=== PATIENT | female | born 1950 | race Caucasian/White ===

== ENCOUNTER 2017-06-26 19:05 | Emergency (ER) | payer OTHER ==
[2017-06-26 19:59] LABS: PLATELET COUNT 310 10^3/uL (150-400)
--- NOTE | 2017-06-26 20:21 | EDPHY ---
H & P Stated Complaint: c/o abd cramping/bloating intermittently x 1 week Time Seen by Provider: 06/26/17 19:22 HPI/ROS: CHIEF COMPLAINT: Abdominal pain HISTORY OF PRESENT ILLNESS: The patient presents to the ED with a one-week history of worsening intermittent abdominal pain. The patient reports her pain is colicky in nature. It primarily is on the left side of her abdomen. She currently complains of mild left lower quadrant tenderness. The patient has a past surgical history significant for x3. She denies any melena or hematemesis. The patient did have 1 episode of nausea and vomiting. The patient reports her symptoms are worsened with eating. She denies any focal right upper quadrant pain. She denies any radiation of her pain to the neck, back or shoulder. REVIEW OF SYSTEMS: A comprehensive 10 point review of systems is otherwise negative aside from elements mentioned in the history of present illness. Source: Patient Exam Limitations: No limitations - Medical/Surgical History Hx Asthma: No Hx Chronic Respiratory Disease: No Hx Diabetes: No Hx Cardiac Disease: No Hx Renal Disease: No Hx Cirrhosis: No Hx Alcoholism: No Hx HIV/AIDS: No Hx Splenectomy or Spleen Trauma: No Other PMH: c section x 3, removal of 1 uterus - Social History Smoking Status: Never smoked - Physical Exam Exam: General Appearance: Alert, no distress Eyes: Pupils equal and round no pallor or injection ENT, Mouth: Mucous membranes moist Respiratory: There are no retractions, lungs are clear to auscultation Cardiovascular: Regular rate and rhythm Gastrointestinal: Tenderness to palpation left lower quadrant, normal bowel sounds, no peritoneal signs Neurological: A&O, normal motor function, normal sensory exam, normal cranial nerves Skin: Warm and dry, no rashes Musculoskeletal: Neck is supple nontender Extremities: symmetrical, full range of motion Constitutional: Initial Vital Signs Temperature (C) 36.9 C 06/26/17 19:09 Heart Rate 77 06/26/17 19:09 Respiratory Rate 16 06/26/17 19:09 Blood Pressure 145/86 H 06/26/17 19:09 O2 Sat (%) 96 06/26/17 19:09 O2 Delivery Mode Room Air Allergies/Adverse Reactions: codeine [Codeine] Allergy (Mild, Verified 06/26/17 19:14) aspirin [Aspirin] Adverse Reaction (Mild, Verified 06/26/17 19:14) Home Medications: Medication Instructions Recorded Hydrocodone/APAP 5/325 [Pecon[place] 1 - 2 each PO Q6 PRN #20 tab 06/26/17 5/325] Ondansetron Odt [Zofran Odt] 4 mg PO Q4PRN PRN #20 tab 06/26/17 levOFLOXACIN [Levaquin] 500 mg PO DAILY #10 tab 06/26/17 metroNIDAZOLE [Flagyl 500 mg (RX)] 500 mg PO TID #30 tab 06/26/17 Medical Decision Making ED Course/Re-evaluation: The patient presents the emergency department complaints of worsening intermittent abdominal pain for past week. She has mild left lower quadrant tenderness noted on exam. The patient was noted to have a slight leukocytosis. A CT scan of the abdomen pelvis with IV contrast was ordered to evaluate for possible diverticulitis. CT scan of the abdomen pelvis does demonstrate diverticulitis without perforation or abscess. The patient was re-evaluated at 9:15 p.m.. She would like to be treated as an outpatient with oral antibiotics. She is given Levaquin and Flagyl in the emergency department. The patient will be advised to be on a soft mechanical diet for the next several days. She also be given a prescription for Zofran and Pe[place]ic. She does understand to return to the ED for markedly worsening pain, fever, vomiting or other concerns. The patient follow up with her primary care provider at [facility] [place] for a recheck within the week. Differential Diagnosis: Differential diagnosis considered includes diverticulitis, perforation, abscess , pancreatitis, cholecystitis - Data Points Laboratory Results: Laboratory Results 06/26/17 19:42 06/26/17 19:42 06/26/17 06/26/17 06/26/17 21:04 19:42 19:42 WBC RBC Hgb Hct MCV MCH MCHC RDW Plt Count MPV Neut % (Auto) Lymph % (Auto) [place] % (Auto) Eos % (Auto) Baso % (Auto) Nucleat RBC Rel Count Absolute Neuts (auto) Absolute Lymphs (auto) Absolute Monos (auto) Absolute Eos (auto) Absolute Basos (auto) Absolute Nucleated RBC Immature Gran % Immature Gran # Sodium 141 mEq/L mEq/L (135-145) Potassium 3.7 mEq/L mEq/L (3.5-5.2) Chloride 106 mEq/L mEq/L (97-110) Carbon Dioxide 22 mEq/l mEq/l (22-31) Anion Gap 13 mEq/L mEq/L (8-16) BUN 22 mg/dL mg/dL (7-23) Creatinine 0.7 mg/dL mg/dL (0.6-1.0) Estimated GFR > 60 Glucose 99 mg/dL mg/dL (70-100) Calcium 10.1 mg/dL mg/dL (8.5-10.4) Total Bilirubin 0.8 mg/dL mg/dL (0.1-1.4) Conjugated Bilirubin 0.3 mg/dL mg/dL (0.0-0.5) Unconjugated Bilirubin 0.5 mg/dL mg/dL (0.0-1.1) AST 25 IU/L IU/L (14-46) ALT 32 IU/L IU/L (9-52) Alkaline Phosphatase 95 IU/L IU/L (38-126) Total Protein 7.1 g/dL g/dL (6.3-8.2) Albumin 4.3 g/dL g/dL (3.5-5.0) Lipase 149 IU/L IU/L (23-300) Urine Color Pending Urine Appearance Pending Urine pH Pending Ur Specific [place] Pending Urine Protein Pending Urine Ketones Pending Urine Blood Pending Urine Nitrate Pending Urine Bilirubin Pending Urine Urobilinogen Pending Ur Leukocyte Esterase Pending Urine Glucose Pending 06/26/17 19:42 WBC 12.58 10^3/uL H 10^3/uL (3.80-9.50) RBC 4.64 10^6/uL 10^6/uL (4.18-5.33) Hgb 14.0 g/dL g/dL (12.6-16.3) Hct 40.2 % % (38.0-47.0) MCV 86.6 fL fL (81.5-99.8) MCH 30.2 pg pg (27.9-34.1) MCHC 34.8 g/dL g/dL (32.4-36.7) RDW 12.9 % % (11.5-15.2) Plt Count 310 10^3/uL 10^3/uL (150-400) MPV 8.9 fL fL (8.7-11.7) Neut % (Auto) 75.9 % H % (39.3-74.2) Lymph % (Auto) 16.9 % % (15.0-45.0) [place] % (Auto) 5.9 % % (4.5-13.0) Eos % (Auto) 0.6 % % (0.6-7.6) Baso % (Auto) 0.4 % % (0.3-1.7) Nucleat RBC Rel Count 0.0 % % (0.0-0.2) Absolute Neuts (auto) 9.56 10^3/uL H 10^3/uL (1.70-6.50) Absolute Lymphs (auto) 2.12 10^3/uL 10^3/uL (1.00-3.00) Absolute Monos (auto) 0.74 10^3/uL 10^3/uL (0.30-0.80) Absolute Eos (auto) 0.07 10^3/uL 10^3/uL (0.03-0.40) Absolute Basos (auto) 0.05 10^3/uL 10^3/uL (0.02-0.10) Absolute Nucleated RBC 0.00 10^3/uL 10^3/uL (0-0.01) Immature Gran % 0.3 % % (0.0-1.1) Immature Gran # 0.04 10^3/uL 10^3/uL (0.00-0.10) Sodium Potassium Chloride Carbon Dioxide Anion Gap BUN Creatinine Estimated GFR Glucose Calcium Total Bilirubin Conjugated Bilirubin Unconjugated Bilirubin AST ALT Alkaline Phosphatase Total Protein Albumin Lipase Urine Color Urine Appearance Urine pH Ur Specific [place] Urine Protein Urine Ketones Urine Blood Urine Nitrate Urine Bilirubin Urine Urobilinogen Ur Leukocyte Esterase Urine Glucose Departure - Departure Disposition: Home, Routine, Self-Care Clinical Impression: Sigmoid diverticulitis Condition: Good Instructions: Diverticulitis (ED) Additional Instructions: 1. Antibiotics as directed for next 10 days. 2. Zofran as needed for nausea. 3. Pe[place]ic as needed for pain. 4. Please return to the ED for markedly worsening pain, fever, vomiting or other concerns. Referrals: NATASHA MOCTEZUMA [Other] - As per Instructions Prescriptions: Hydrocodone/APAP 5/325 [[place] 5/325] 1 - 2 each PO Q6 PRN #20 tab PRN Reason: for pain levOFLOXACIN [Levaquin] 500 mg PO DAILY #10 tab metroNIDAZOLE [Flagyl 500 mg (RX)] 500 mg PO TID #30 tab Ondansetron Odt [Zofran Odt] 4 mg PO Q4PRN PRN #20 tab PRN Reason: For Nausea
[2017-06-26] MEDS ORDERED: IOPAMIDOL (ISOVUE-300) 100 ML BTL ONE (20:26)
[2017-06-26] MEDS ORDERED: metroNIDAZOLE 500 MG TAB PO ONE (21:03)
[2017-06-26] MEDS ORDERED: ONDANSETRON 4MG PREPACK#2 BTL TAKEHOME ONE (21:12)
[2017-06-26] MEDS ORDERED: HYDROCOD/APAP 5/325 PREPACK#6 BTL TAKEHOME ONE (21:12)
[2017-06-26 21:30] VITALS: BP 142/88; PULSE 75; RESP 16; TEMP 97.7; O2SAT 98
== END 2017-06-26 21:33 | disposition home or self-care (01) ==
DX: K57.32 Diverticulitis of large intestine without perforation or abscess without bleeding (principal)
CPT/HCPCS: 74177; 99285; Q9967